=== PATIENT | male | born 1995 | race Two or more races ===

== ENCOUNTER 2025-10-19 03:56 | Emergency (ER) | payer SELFPAY ==
[2025-10-19 03:57] VITALS: BMI 30.8
[2025-10-19 04:03] VITALS: BP 131/85; PULSE 108; RESP 19; TEMP 37.3; O2SAT 95
--- NOTE | 2025-10-19 04:14 | XR_ITS ---
Examination: Ribs, right with PA chest, 4 views Technique: Chest PA, RIBS AP, RPO, LPO, 4 views Exam date and time: October 19, 2025, 0417 hours INDICATIONS: Right-sided chest pain after heavy lifting at work today Findings: Normal heart size No pneumothorax No acute rib fractures No pulmonary contusion or hemothorax IMPRESSION: No pneumothorax pulmonary contusion or hemothorax No acute rib fractures Please see the right shoulder report
--- NOTE | 2025-10-19 04:14 | PD.EDSOB ---
ED SOB =RME/HPI General Chief Complaint: Shortness of Breath/Dyspnea Stated Complaint: SOB X 1DAY Time Seen by Provider: 10/19/25 04:17 Arrival date/time: 10/19/25 03:56 30-year-old male reports with complaints of right side chest pain x 1 day. Patient reports the pain began after doing heavy lifting at his work. Patient says the pain increases with attempts to take deep breath then but it is only located on the right side of his chest and his ribs. Patient states earlier in the week he had right sided neck and shoulder pain as well but they have since resolved. He denies any fever chills shortness of breath cough congestion abdominal pain nausea or vomiting. Patient also denies take any medications for his symptoms Limitations: no limitations Related Data Allergies Allergy/AdvReac Type Severity Reaction Status Date / Time No Known Allergies Allergy Verified 10/19/25 03:58 Review of Systems Constitutional Constitutional: Denies chills, Denies fever(s) and Denies headache(s) ENT Ears, Nose, Mouth, and Throat: Denies headache(s) and Denies vertigo Cardiovascular Cardiovascular: Reports chest pain and Denies dyspnea Respiratory Respiratory: Denies dyspnea and Reports pain on inspiration Gastrointestinal Gastrointestinal: Denies abdominal pain, Denies nausea and Denies vomiting Musculoskeletal Musculoskeletal: Reports back pain and Reports myalgias Integumentary/Breasts Skin/Breast: Denies unusual bruising and Denies wounds Neurologic Neurologic: Denies headache(s) and Denies vertigo Past Medical History Social History SMOKING STATUS: Current some day smoker ED Exam General Limitations: Present no limitations General appearance: Present alert and in no apparent distress Chest Chest inspection: Present normal inspection, symmetric chest wall rise and tenderness (right 6-8 rib but no deformity noted) Respiratory Respiratory exam: Present normal lung sounds bilaterally Cardiovascular Cardiovascular exam: Present regular rate, normal rhythm and normal heart sounds Abdominal Exam Abdominal exam: Present soft and normal bowel sounds Extremities Exam Extremities exam: Present normal inspection and full ROM Back Exam Back exam: Present normal inspection and full ROM Neurological Exam Neurological exam: Present alert, oriented X3 and CN II-XII intact Psychiatric Psychiatric exam: Present normal affect and normal mood Skin Skin exam: Present warm, dry, intact and normal color Course Course Course Narrative: 30-year-old reports with complaints of right-sided chest pain after doing some heavy lifting at work. X-ray shows no fractures of the ribs Quality Measures none Orders Category Date Time Status XR ribs RT min 3V w CXR1V Stat Exams 10/19/25 04:14 Taken Ketorolac Inj [Toradol Inj] Med 10/19/25 04:29 Discontinued 60 mg IM X1 ONE Vital Signs Vital signs: Vital Signs Temperature 99.2 F 10/19/25 04:03 Pulse Rate 108 H 10/19/25 04:03 Respiratory Rate 19 10/19/25 04:03 Blood Pressure 131/85 H 10/19/25 04:03 Pulse Oximetry (%) 95 10/19/25 04:03 Oxygen Delivery Method Room Air 10/19/25 04:03 Shortness of Breath / Dyspnea Patient data External records reviewed:: None Clinical information provided by:: patient Social determinants that could affect healthcare access:: none Patient has the following chronic illnesses:: none How is presenting disease/condition affected by chronic disease/condition?: no chronic disease Evaluation data The following diagnostics were reviewed and interpreted by me:: radiology exam(s) Lab and/or radiology exams considered but not ordered:: none Interpretation Summary: Negative for fractures of the ribs Medications / Prescriptions Medications or Prescriptions considered but not ordered:: None Medication administrations:: Medication Administration History Discontinued Medications Ketorolac Tromethamine (Ketorolac Inj 60 Mg/2 Ml Vial) 60 mg IM X1 ONE Stop: 10/19/25 04:30 Last Admin: 10/19/25 04:36 Dose: 60 mg Documented By: LILIA As above Consultations Consultation(s) initiated? (list below): No Diagnosis Shortness of Breath Differential Diagnosis: other (Costochondritis versus chest wall strain versus pneumonia) Most likely diagnosis given after review of the tests above:: Chest wall strain Admission Indicated Admission indicated?: not indicated Admission Request Was there a request for admission?: No Disposition Plan Disposition Plan: Discharge Discharge Attestation Discharge Attestation: The patient and all family members were given an opportunity to ask questions and understood the discharge instructions. Discharge instructions specifically effects, indications for sooner follow up or return to the emergency department, and the expected course of current diagnosis. Patient condition: Stable Discharge Plan Plan Patient Disposition: HOME (Self Care) Prescriptions/Referrals Referrals: Temporary Provider,ED [Physician, Emergency Medicine] - In 1 week Problem List Clinical Impression: Chest wall muscle strain Patient/Caregiver Discharge Instructions Discharge Activity: activity as tolerated Education Materials: Self-Care for Strains and Sprains Additional Instructions: Your x-rays are normal your pain is most likely caused by muscles in the chest being strained you should use [id number] medications such as Tylenol or ibuprofen limit lifting pushing or pulling for 2 to 3 days to help reduce the pain. Follow-up with your primary care provider if no improvement in 3 days. Return to the emergency department if symptoms should worsen Print Language: Citizen Of [place] Stand Alone Forms: Alexandrea Award Info., Patient Portal Info Letter
[2025-10-19] MEDS: KETOROLAC INJ 60 MG/2 ML VIAL IM (04:36)
== END 2025-10-19 05:05 | disposition home or self-care (01) ==
PROVIDERS: Emergency Provider Emergency Medicine
DX: S29.011A Strain of muscle and tendon of front wall of thorax, initial encounter (principal); X50.9XXA Other and unspecified overexertion or strenuous movements or postures, initial encounter; X50.0XXA Overexertion from strenuous movement or load, initial encounter; Y93.89 Activity, other specified; Y99.0 Civilian activity done for income or pay
CPT/HCPCS: 71101; 96372; 99283; J1885